=== PATIENT | female | born 1995 | race Hispanic/Latino ===

== ENCOUNTER 2018-07-22 18:51 | Emergency (ER) | payer MEDICAID ==
[2018-07-22 19:14] VITALS: RESP 18
[2018-07-22] MEDS ORDERED: Sodium Chloride 0.9% 1,000 ML IV ONE (20:08)
--- NOTE | 2018-07-22 20:08 | C.PDOC ---
History Of Present Illness Patient presents to the ER with a complaint of left lower quadrant pain, nausea, and vomiting for the past few days, associated with loose stools and vaginal discharge with a reddish tinge. Denies fever, chills, or rectal bleed. Time Seen by Provider: 07/22/18 20:08 Chief Complaint (Nursing): Abdominal Pain History Per: Patient History/Exam Limitations: no limitations Current Symptoms Are (Timing): Still Present Severity: Moderate Pain Scale Rating Of: 4 Location Of Pain/Discomfort: LLQ Radiation Of Pain To:: None Quality Of Discomfort: Unable To Describe Associated Symptoms: Nausea, Vomiting, Other ((+) Loose stool, Vaginal discharge (-) Rectal bleed). denies: Fever, Chills Exacerbating Factors: None Alleviating Factors: None Recent travel outside of the [place]: No Abnormal Vaginal Bleeding: No Past Medical History Reviewed: Historical Data, Nursing Documentation, Vital Signs Vital Signs: Last Vital Signs Temp 98.4 F 07/22/18 19:10 Pulse 84 07/22/18 19:10 Resp 18 07/22/18 19:10 BP 107/69 07/22/18 19:10 Pulse Ox 98 07/22/18 21:17 - [email or web address] Procedures NEBULIZER THERAPY (11/09/03) Family History: States: No Known Family Hx - Social History Hx Alcohol Use: No Hx Substance Use: No - Immunization History Hx Tetanus Toxoid Vaccination: No Hx Influenza Vaccination: No Hx Pneumococcal Vaccination: No Review Of Systems Constitutional: Negative for: Fever, Chills Cardiovascular: Negative for: Chest Pain, Palpitations Respiratory: Negative for: Cough, Shortness of Breath Gastrointestinal: Positive for: Nausea, Vomiting, Abdominal Pain, Other ((+) Loose stools (-) Rectal bleed) Genitourinary: Positive for: Vaginal Discharge (with reddish tinge) Neurological: Negative for: Weakness, Numbness Physical Exam - Physical Exam Appears: Non-toxic, Other (Moderate discomfort) Skin: Warm, Dry Head: Normacephalic Oral Mucosa: Moist Chest: Symmetrical, No Tenderness Cardiovascular: Rhythm Regular Respiratory: No Rales, No Rhonchi, No Wheezing Gastrointestinal/Abdominal: Soft, Tenderness (LLQ), No Guarding, No Rebound Back: No CVA Tenderness Neurological/Psych: Oriented x3 ED Course And Treatment - Laboratory Results Result Diagrams: 07/22/18 20:35 07/22/18 20:35 O2 Sat by Pulse Oximetry: 98 (Room air) Pulse Ox Interpretation: Normal Progress Note: CT abd/pel, blood work, and urinalysis ordered. Protonix and IV fluids administered. Reevaluation Time: 23:03 Reassessment Condition: Improved Disposition Counseled Patient/Family Regarding: Studies Performed, Diagnosis, Need For Followup - Disposition Disposition: HOME/ ROUTINE Disposition Time: 20:08 Condition: FAIR Additional Instructions: Please return if symptoms recur Prescriptions: Polyethylene Glycol 3350 [Miralax] 17 gm PO DAILY #270 ml Instructions: Acute Abdomen (Belly Pain), Adult (DC), Constipation, Adult (DC), Uterine Fibroids (DC) Forms: H2020 (Italian) - Clinical Impression Clinical Impression: Abdominal pain, Constipation, Uterine fibroid - Scribe Statement The provider has reviewed the documentation as recorded by the Scribe Babak Obrien All medical record entries made by the Scribe were at my direction and personally dictated by me. I have reviewed the chart and agree that the record accurately reflects my personal performance of the history, physical exam, medical decision making, and the department course for this patient. I have also personally directed, reviewed, and agree with the discharge instructions and disposition.
[2018-07-22 20:39] LABS: BASO % 0.5 % (0.0-2.0); EOS # 0.1 K/uL (0.0-0.7); HEMOGLOBIN 10.9 g/dL (11.0-16.0); LYMPH # 1.7 K/uL (1.0-4.3); LYMPH % 22.9 % (20.0-40.0); MEAN CELL VOLUME 73.3 fL (81.0-99.0); MEAN CORPUSCULAR HEMOGLOBIN 23.4 pg (27.0-31.0); MEAN CORPUSCULAR HGB CONC 31.9 g/dL (33.0-37.0); MEAN PLATELET VOLUME 6.9 fL (7.2-11.7); MONO # 1.5 K/uL (0.0-0.8); MONO % 19.2 % (0.0-10.0); NEUT # 4.3 K/uL (1.8-7.0); NEUT % 56.4 % (50.0-75.0); NRBC % 0.1 % (0.0-2.0); RBC 4.65 Mil/uL (3.80-5.20); RED CELL DISTRIBUTION WIDTH 17.9 % (11.5-14.5); WHITE BLOOD COUNT 7.6 K/uL (4.8-10.8)
[2018-07-22 20:43] LABS: HCG,QUALITATIVE URINE NEGATIVE (NEGATIVE)
[2018-07-22 20:47] LABS: SQUAMOUS EPITHIAL 2 /hpf (0-5); URINE BACTERIA OCC (<OCC); URINE BILIRUBIN NEGATIVE (NEGATIVE); URINE CLARITY Clear (Clear); URINE COLOR Yellow (YELLOW); URINE GLUCOSE (UA) NORMAL (Normal); URINE LEUKOCYTE ESTERASE NEG Leu/uL (Negative); URINE PROTEIN NEGATIVE (NEGATIVE)
[2018-07-22 20:48] LABS: INR 1.1; PROTHROMBIN TIME 12.3 SECONDS (9.7-12.2)
[2018-07-22 20:51] LABS: ALB/GLOB RATIO 1.2 (1.0-2.1); ALBUMIN 4.3 g/dL (3.5-5.0); ALT/SGPT 20 U/L (9-52); AST/SGOT 17 U/L (14-36); BLOOD UREA NITROGEN 15 mg/dL (7-17); CALCIUM 9.1 mg/dl (8.6-10.4); GFR NON-AFRICAN AMERICAN > 60; LIPASE 36 U/L (23-300)
[2018-07-22 20:55] LABS: URINE BLOOD 1+ (NEGATIVE)
[2018-07-22] MEDS ORDERED: Iodixanol 320 MG/ML 100 ML BOTTLE IV ONE (21:34)
[2018-07-22] MEDS ORDERED: cefTRIAXone IV 1 gm in Dextros 50 ML IVPB ONE (23:25)
[2018-07-22] MEDS ORDERED: cefTRIAXone 1 gm 1 GM/100 ML BAG IVPB ONE (23:40)
[2018-07-23 00:07] VITALS: BP 116/80; PULSE 77; TEMP 98.2; O2SAT 100
--- NOTE | 2018-07-23 11:11 | CT ---
Date of service: 07/22/2018 PROCEDURE: CT Abdomen and Pelvis with contrast HISTORY: llq abd pain, n/v COMPARISON: None available TECHNIQUE: Contrast dose: 100 mL Visipaque IV Radiation dose: Total exam DLP = 190.16 mGy-cm. This CT exam was performed using one or more of the following dose reduction techniques: Automated exposure control, adjustment of the mA and/or kV according to patient size, and/or use of iterative reconstruction technique. FINDINGS: LOWER THORAX: No visible consolidation, pleural effusion, or pneumothorax. LIVER: Unremarkable. GALLBLADDER AND BILE DUCTS: Unremarkable. PANCREAS: Unremarkable. SPLEEN: Unremarkable. ADRENALS: Unremarkable. KIDNEYS AND URETERS: The kidneys enhance symmetrically. No hydronephrosis or obstructing calculus identified. 6 mm cyst, midpole left kidney. VASCULATURE: No aortic aneurysm. BOWEL: Stomach is nondistended. Lack of oral contrast limits evaluation for bowel pathology. Bowel loops appear within normal limits of caliber without evidence of obstruction. Moderate constipation. APPENDIX: The appendix appears within normal limits of caliber. No secondary signs of acute appendicitis. PERITONEUM: Small pelvic free fluid. No definite free air. LYMPH NODES: No bulky adenopathy identified. BLADDER: Unremarkable. REPRODUCTIVE: Heterogeneous enlarged uterus. 6 cm hypodense mass, possibly fibroid. Right uterine body approximately 2.6 cm mass also likely fibroid. BONES: No acute osseous abnormality is detected. OTHER FINDINGS: None. IMPRESSION: Heterogeneous appearance of the uterus with 2 large probable fibroids. Recommend further evaluation with pelvic ultrasound. Small pelvic free fluid particularly right adnexal region. Small probable left renal cyst. Constipation. Preliminary impression was provided by [employer].
== END 2018-07-23 01:24 | disposition home or self-care (01) ==
LOC: C.ER 18:51
DX: D25.9 Leiomyoma of uterus, unspecified (principal); K59.00 Constipation, unspecified; R10.32 Left lower quadrant pain
CPT/HCPCS: 74177; 80053; 81001; 83690; 84703; 85025; 85610; 85730; 87491; 87591; 96365; 96375; 99284; C9113; J0696; J1885; J7030; Q9967